=== PATIENT | female | born 1980 | race Caucasian/White ===

== ENCOUNTER 2019-08-07 05:59 | Outpatient (CLI) | payer BC, OTHER ==
[2019-08-07 14:13] LABS: Mean Corpuscular HGB CONC 33.2 g/dL (32.0-36.0); Mean Corpuscular Hemoglobin 31.3 pg (27.0-31.0); Mean Corpuscular Volume 94.1 fL (78.0-98.0); Mean Platelet Volume 8.9 fL (7.4-10.4); Platelet Count 227 thou/uL (130-400); RBC Distribution Width 11.2 % (11.5-14.5); Red Blood Cell (RBC) Count 4.49 mill/uL (4.20-5.40); White Blood Cell (WBC) Count 6.8 thou/uL (4.8-10.8)
[2019-08-07 14:18] LABS: Anion Gap 11 mmol/L (10-20); BUN (Urea Nitrogen) 17 mg/dL (7.0-18.7); Calc. Creatinine Clearance 0 mL/min (70-130); Calcium 9.4 mg/dL (7.8-10.44); Carbon Dioxide 28 mmol/L (22-29); Chloride 104 mmol/L (98-107); Estimated GFR-MDRD 81; Glucose 82 mg/dL (70-105); Potassium 4.2 mmol/L (3.5-5.1); Sodium 139 mmol/L (136-145)
[2019-08-08 13:50] LABS: SARS-CoV-2 MS2 Positive; SARS-CoV-2 N Gene Negative; SARS-CoV-2 S Gene Negative; SARS-CoV-2 orf1ab Negative
== END 2019-08-07 06:00 | disposition home or self-care (01) ==
LOC: LABBT 05:59
PROVIDERS: ATTEND Orthopaedic Surgery
DX: Z01.812 Encounter for preprocedural laboratory examination (principal); Z11.59 Encounter for screening for other viral diseases; M75.41 Impingement syndrome of right shoulder; M75.22 Bicipital tendinitis, left shoulder
CPT/HCPCS: 80048; 85027; 87635; 93005; 93010; U0003

== ENCOUNTER 2019-08-10 10:31 | Day surgery (SDC) | payer BC ==
[2019-08-06 10:11] VITALS: BMI 31.7
[2019-08-10] MEDS ORDERED: Dexamethasone 20 MG/5 ML VIAL ONE (10:39)
[2019-08-10] MEDS ORDERED: Glycopyrrolate 0.2 MG/ML 5 ML SYRINGE ONE (10:39)
[2019-08-10] MEDS ORDERED: Ondansetron PF 4 MG/2 ML Vial ONE (10:39)
[2019-08-10] MEDS ORDERED: Rocuronium Bromide 10 MG/ML (10ML VIAL) ONE (10:39)
[2019-08-10] MEDS ORDERED: Lidocaine 1% PF 5 ML VIAL ONE (10:39)
[2019-08-10] MEDS ORDERED: PROPOFOL 200 MG/20 ML VIAL ONE (10:39)
[2019-08-10] MEDS ORDERED: Ketorolac Tromethamine 30 MG/ML VIAL ONE (10:39)
[2019-08-10] MEDS ORDERED: Bupivacaine HCl 0.5%/Epinephrine 1:200,000/PF 30 ml Vial ONE (10:39)
[2019-08-10] MEDS ORDERED: Fentanyl 100 MCG/2 ML VIAL ONE ×2 (10:51→11:39)
[2019-08-10] MEDS ORDERED: EPINEPHrine 1 MG/ML AMP ONE (11:39)
[2019-08-10] MEDS ORDERED: Midazolam HCl 2 mg/2 ml Vial ONE (11:39)
[2019-08-10] MEDS ORDERED: Promethazine HCl 25 MG/ML VIAL ONE (14:55)
--- NOTE | 2019-08-10 18:27 | OP ---
DATE OF PROCEDURE: 08/10/2019 PREOPERATIVE DIAGNOSES: Right shoulder with impingement syndrome and biceps tendinitis. POSTOPERATIVE DIAGNOSES: Right shoulder with impingement syndrome and biceps tendinitis. PROCEDURES PERFORMED: Arthroscopy of the right shoulder with subacromial decompression and open biceps tenodesis. ANESTHESIA: General. DESCRIPTION OF PROCEDURE: The patient was given preoperative IV antibiotics, taken to the operating room, satisfactory general anesthesia was performed. The patient was placed in the left lateral decubitus position. All bony prominences were well padded. The right upper extremity was placed in 15 pounds of traction. The right shoulder was sterilely prepped and draped in usual fashion. The shoulder was scoped through the posterior approach, and anterior portal was also made. There was some fraying of the anterior superior labrum, which was cleaned up with the shaver. The biceps tendon was noted to be inflamed. It was cut from its normal attachments in the superior aspect of the superior labrum using a shaver. There was no arthritis in the shoulder joint. The articular cartilage looked very good. The anterior, posterior, and inferior labrum also looked very good. There was no tearing identified in the rotator cuff from the shoulder joint. The subacromial space was then entered. There was significant amount of bursitis and a partial bursectomy was performed. A 90-degree ArthroWand was used to remove the soft tissue from under the acromion and under the distal aspect of the clavicle, and a high-speed makenzie was used to thin down the undersurface of the acromion and the distal aspect of the clavicle. The rotator cuff was intact and had no obvious thin areas. The arthroscopic equipment was removed. A 1-inch incision was made over the bicipital groove. The deltoid muscle was bluntly divided. The bicipital groove was identified. The biceps tendon was located and sutures were placed in it. It was moved aside and a 7.5 hole was made in the bicipital groove and the biceps tendon was tenodesed in the humeral head through the bicipital groove using a 7 mm Arthrex anchor. This provided excellent fixation for the biceps tendon. The shoulder joint and the incision were irrigated during the procedure. The fascia over the deltoid muscle was closed using 0 Vicryl and the skin incisions were closed with 3-0 Rapide. Sterile dressing was applied. The patient was taken out of traction. She was awakened, extubated, and transferred to recovery room in stable condition. ESTIMATED BLOOD LOSS: Minimal. COMPLICATIONS: None. Job ID: [id number]
== END 2019-08-10 16:50 | disposition home or self-care (01) ==
LOC: SDC 10:31
PROVIDERS: ATTEND Orthopaedic Surgery
PROC: 0RNJ4ZZ Release Right Shoulder Joint, Percutaneous Endoscopic Approach (ICD-10-PCS; principal; 2019-08-10)
PROC: 0LS30ZZ Reposition Right Upper Arm Tendon, Open Approach (ICD-10-PCS; principal; 2019-08-10)
DX: M75.41 Impingement syndrome of right shoulder (principal); M75.21 Bicipital tendinitis, right shoulder; Z88.2 Allergy status to sulfonamides
CPT/HCPCS: C1713; J0171; J0670; J0690; J1100; J1885; J2001; J2250; J2405; J2550; J2704; J3010